=== PATIENT | male | born 1995 | race Caucasian/White ===

== ENCOUNTER 2024-05-09 18:20 | Observation (INO) ==
--- OUTSIDE RECORDS SUMMARY | 2024-05-09 18:31 | External Medical Summary | Summary of Care ---
Author Name Unknown Organization [facility] Address [address] [place] [address] Phone [phone] Care Team Providers Care Entertainment Reporter Name Role Phone Ramo Penaloza MD Primary Care Provider Reason for Visit * Reason Onset Date Comments No Show 12/12/2023 [facility] No Show Auto mation Encounter Details Date Type Department Care Team (Late st Contact Info) Description 12/12/2023 Telephone Family Practice [facility] [address] [place] [id number] Jocelyn Walker CRNP [address] [place] [address] No Show ([facility] No Show Automation) Allergies Active Allergy Reactions Criticality Noted Date Comments Aripiprazole Edema face/lips/tongue,Other (Please comment) High 01/07/2008 Per mom, pt had shaking, very lethargic, Risperidone Abdominal pain High 03/23/2013 Slurred speech, blurred vision, documented as of this encounter (statuses as of 12/12/2023) Medications Medication Sig Dispensed Refills Start Date End Date Status levETIRAcetam 1000 MG Oral Tablet Take 1 Tablet by mouth in the morning and 1 Tablet before bedtime. 180 Tablet 3 08/08/2023 Active Fluticasone Propionate 50 MCG/ACT Nasal Suspension (Flonase) Administer 2 Sprays into nostril daily as needed for Allergies or Congestion. 16 g 5 08/08/2023 Active Proventil HFA 108 (90 Base) MCG/ACT Inhalation Aerosol Solution Inhale 2 Puffs by mouth every 4 hours as needed for Wheezing. 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 documented as of this encounter (statuses as of 12/12/2023) Immunizations Name Administration Dates Next Due Seasonal Influenza Virus Vac cine, Unspecified Formulation 12/05/2021 TDAP (age 10 and older)(Boostrix) 12/05/2021 documented as of this encounter Social History Tobacco Use Types Packs/Day Years Used Date Smoking Tobacco: Every Day Cigarettes Passive Smoke Exposure: Current Smokeless Tobacco: Former Alcohol Use Standard Drinks/Week Comments Not Currently 0 (1 standard drink = 0.6 oz pur e alcohol) occ PHQ-2 Answer Date Recorded PHQ Adult Total Score 0 08/08/2023 Hunger Vital Sign Answer Date Recorded Within the past 12 months, y ou worried that your food would run out before you got the money to buy more. Never true 08/08/19 24 Within the past 12 months, t he food you bought just didn't last and you didn't have money to get more. Never true 08/08/2023 Childcare Answer Date Recorded Do you feel overwhelmed with taking care of a child, family member or friend? No 08/08/2023 Does your family need help f inding childcare? (Household - for ages 0-17 years) Not on file 08/08/2023 Clothing Answer Date Recorded Have you been unable to get clothing when it was really needed? No 08/08/2023 Is your family able to get c lothes or diapers when needed? (Household - for ages 0-17 years) Not on file 08/08/2023 Personal Safety Answer Date Recorded Do you feel unsafe or have concerns for your saf ety? No 08/08/2023 Do you have concerns for you r family's safety? (Household - for ages 0-17 years) Not on file 08/08/2023 Utilities Answer Date Recorded Do you have trouble paying y our heating, water, or electric bill? No 08/08/2023 Is your family able to pay t he heat, water, or electric bill? (Household - for ages 0-17 years) Not on file 08/08/2023 Does your family have access to good internet? (Household - for ages 0-17 years) Not on file 08/08/2023 Employment Status Answer Date Recorded Are you unemployed or without regular income? No 08/08/2023 Does the household have a re gular source of income? (Household - for ages 0-17 years) Not on file 08/08/2023 Social Connections Answer Date Recorded How often do you feel lonely or isolated from th ose around you? Never 08/08/2023 Financial Resource Strain Answer Date R ecorded Do you have any trouble payi ng for your medications, or do you think you might in the future? No 08/08/2023 Does your family have troubl e paying for medicine? (Household - for ages 0-17 years) Not on file 08/08/2023 Transportation Needs Answer Date Record ed READ ONLY Do you have troubl e getting a ride to medical visits or work? Never True 08/08/2023 Does your family have a hard time getting a ride to doctors visits? (Household - for ages 0-17 years) Not on file 08/08/2023 Has lack of transportation k ept you from medical appointments, meetings, work, or from getting things needed for daily living? Check all that apply. (Adult - for ages 18 years and over) Not on file 08/08/2023 Do you (or your family) have trouble finding or paying for a ride (transportation)? (Household - for ages 0-17 years) Not on file 08/08/2023 Housing Stability Answer Date Recorded Do you currently live in a s helter or have no steady place to sleep at night? No 08/08/2023 READ ONLY Do you think you a re at risk of becoming homeless? No 08/08/2023 Does your family worry about paying for your home or becoming homeless? (Household - for ages 0-17 years) Not on file 0 08/08/2023 Are you homeless or worried that you might be in the future? (Adult - for ages 18 years and over) Not on file Are you (or your family) mike eless or worried that you might be in the future? (Household - for ages 0-17 years) Not on file Food Insecurity Answer Date Recorded Do you need food for this week? No 08/08/2023 Are you able to get enough f ood for your family? (Household - for ages 0-17 years) Not on file 08/08/2023 Does your family need food t his week? (Household - for ages 0-17 years) Not on file 08/08/2023 Do you always have enough fo od for your family? (Household - for ages 0-17 years) Not on file 08/08/2023 Sex and Gender Information Value Date Recorded Sex Assigned at Male 08/08/2023 8:19 AM EDT Gender Identity Male 08/08/2023 8:19 AM EDT Sexual Orientation Straight 08/08/2023 8: 19 AM EDT Job Start Date Occupation Industry Not on file Not on file Not on file documented as of this encounter Miscellaneous Notes * Telephone Encounter - [facility], No Show - 12/12/2023 8:24 AM EDT Dear Cole Scruggs, Looks like you missed an appointment with JOCELYN WALKER on 12/03/2023 at 02:20 PM. If you haven't already rescheduled, you have a couple of options: Reschedule in [email or web address] Call us at [phone] Can't make a future appointment? Cancel and let someone else have your spot! It's easy to do via [facility] or by calling us. Thanks for [facility] with your care. We hope to see you back in our office soon. Sincerely, JOCELYN WALKER documented in this encounter Plan of Treatment Upcoming Encounters Date Type Department Care Team (Late st Contact Info) Description 08/10/2024 8:20 AM EDT Office Visit Family [facility] [address] [address] Ramo Penaloza MD [address] [id number] Health Maintenance Due Date Last Done Comments Pneumococcal Vaccine: Pediat rics (0 to 5 Years) and At-Risk Patients (6 to 64 Years) (1 of 2 - PCV) 2003 HPV (Gardasil) Vaccine (1 - Male 3-dose series) 01/13/2012 Influenza Vaccine (FLU shot) (#1) 2023 022 Depression Screening 08/07/2024 08/08/2023 DTap/Tdap Vaccines (2 - Td o r Tdap) 12/06/2031 12/05/2021 COVID-19 Vaccine Discontinued HIV Screening Discontinued Hepatitis B Vaccine Discontinued Hepatitis C Screening Discontinued MENINGOCOCCAL (MENACTRA/MENVEO) Aged Out No longer eligible based on patient's age to complete this topic documented as of this encounter Medical Devices Not on filedocumented as of this encounter Care Teams Entertainment Reporter Relationship Specialty Start Date End Date Ramo Penaloza MD [address] [id number] PCP - General Family Medicine 08/08/23 documented as of this encounter
--- OUTSIDE RECORDS SUMMARY | 2024-05-09 18:31 | External Medical Summary | Summary of Care ---
Author Name Unknown Organization [facility] Address [address] [place] [address] Phone [phone] Care Team Providers Care Scrap Kettle Tender Name Role Phone Ramo Penaloza MD Primary Care Provider Reason for Visit * Reason Onset Date Comments Appointment 12/03/2023 Appointment Encounter Details Date Type Department Care Team (Late st Contact Info) Description 12/03/2023 Telephone Family Practice [facility] [address] [facility] [address] Ramo Penaloza MD [address] [place] [address] Appointment (Appointment ) Allergies Active Allergy Reactions Criticality Noted Date Comments Aripiprazole Edema face/lips/tongue,Other (Please comment) High 01/07/2008 Per mom, pt had shaking, very lethargic, Risperidone Abdominal pain High 03/23/2013 Slurred speech, blurred vision, documented as of this encounter (statuses as of 12/03/2023) Medications Medication Sig Dispensed Refills Start Date [...] as of this encounter (statuses as of 12/03/2023) Active Problems Problem Noted Date Diagnosed Date Convulsions 08/08/2023 Exotropia 06/17/2013 Disorder of eye movements 11/08/2009 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 (Household - for ages [...] encounter Miscellaneous Notes * Telephone Encounter - Stefanie Rico LPN - 12/03/2023 2:42 PM EDT Pt called and told given his symptoms he should be seen and suggested [facility] or can rescheduleapt. Said he will call to reschedule his apt as he was going to be late today for apt. * Telephone Encounter - Winnie Cardenas OSA - 12/03/2023 2:26 PM EDT Patient called in at 2:23pm to notify office he was running approx 10min late for his 2:20pm appointment. I advised patient of the 15min late policy and that if he is 15min or more late he would be rescheduled. He states he lives atleast 15 min away. I stated oh ok so you haven't left home yet and he stated no he still needs to get dressed. I explained he would need to reschedule or he could go to a convenient or urgent care for evaluation. He said to reschedule then before I could he asked to speak with a doctor. I explained they are seeing patients but I could take a message. He then asked if a nurse could call him. I asked if it isregarding his symptoms or appointment and he stated appointment. He is asking for a nurse to call him back at [phone] documented in this encounter Plan of Treatment Upcoming Encounters Date Type Department Care Team (Late st Contact Info) Description 08/10/2024 8:20 AM EDT Office Visit Family [facility] [address] [address] Ramo Penaloza MD [address] [address] Health Maintenance Due Date Last Done Comments [...] filedocumented as of this encounter Care Teams Scrap Kettle Tender Relationship Specialty Start Date End Date Ramo Penaloza MD [address] [id number] PCP - General Family Medicine 08/08/23 documented as of this encounter
[2024-05-09 19:05] LABS: Basophils # (auto) 0.05 K/uL (0.00-0.20); Basophils % (auto) 0.5 %; Eosinophils # (auto) 0.04 K/uL (0.00-0.50); Eosinophils % (auto) 0.4 %; Hemoglobin 15.4 g/dl (14.0-18.0); Immature Granulocytes # (auto) 0.03 K/uL (0.01-0.20); Immature Granulocytes % (auto) 0.3 %; Lymphocytes # (auto) 0.81 K/uL (1.20-3.40); Lymphocytes % (auto) 7.9 %; Mean Corpuscular Hemoglobin 27.9 pg (25.0-34.0); Mean Corpuscular Hgb Conc 32.8 g/dL (32.0-36.0); Mean Corpuscular Volume 85.1 fL (80.0-100.0); Mean Platelet Volume 9.1 fL (9.4-12.4); Monocytes # (auto) 0.63 K/uL (0.11-0.59); Monocytes % (auto) 6.2 %; Neutrophils # (auto) 8.67 K/uL (1.40-6.50); Neutrophils % (auto) 84.7 %; Platelet Count 219 K/uL (130-400); RDW Coefficient of Variation 13.2 % (11.5-14.5); RDW Standard Deviation 41.4 fL (36.4-46.3); Red Blood Count 5.52 M/uL (4.70-6.10); White Blood Count 10.23 K/ul (4.8-10.8)
[2024-05-09] MEDS: ACETAMINOPHEN 1,000 MG/100 ML VIAL IV STA (19:07)
[2024-05-09 19:21] LABS: Alanine Aminotransferase 18 U/L (7-52); Albumin Globulin Ratio 1.3 (0.9-2); Albumin Level 4.5 gm/dl (3.4-5.0); Alkaline Phosphatase 68 U/L (34-104); Anion Gap 5 (3-11); Aspartate Aminotransferase 15 U/L (13-39); BUN Creatinine Ratio 8.9 (10-20); Bilirubin,Total 0.5 mg/dl (0.2-1.0); Blood Urea Nitrogen 9 mg/dl (6-23); Calcium 9.4 mg/dl (8.6-10.3); Carbon Dioxide 29 mmol/L (21-32); Chloride 103 mmol/L (98-107); Creatinine Clr Calc Pharmacy 180.9 ml/min; Globulin 3.5 gm/dl (2.5-4.0); Glucose 155 mg/dl (70-99(Fasting)); Potassium 4.1 mmol/L (3.5-5.1); Sodium 137 mmol/L (136-145)
[2024-05-09 19:27] LABS: Troponin I High Sensitivity < 2.3 pg/ml (0-20)
--- NOTE | 2024-05-09 19:30 | Emergency Department Note ---
Impression & Plan Influenza A, Tachycardia ED Provider Note NAME: BARB DOMÍNGUEZ AGE: 29 SEX: M : 1995 ARRIVES VIA: Walk-In INFORMANT: Patient, ED PROVIDER(S): Jermain Mobley MD CHIEF COMPLAINT: Shortness of breath HPI: This is a 29-year-old male present for shortness of breath. Patient states that yesterday he began having shortness of breath, body aches and pain with cough. He notes there is no pain with breathing at this time but does note his abdomen and chest hurt when he is coughing or sneezing. He notes no fevers. He notes nausea/vomiting with coughing too hard. Otherwise no abdominal pain, diarrhea. Does have body aches. ROS: See above HPI for pertinent positives & negatives. A total of 10 systems reviewed and were otherwise negative. PAST MEDICAL HISTORY: See Below PAST SURGICAL HISTORY: See Below FAMILY HISTORY: See Below SOCIAL HISTORY: See Below HOME MEDICATIONS: See Below ALLERGIES: See Below VITALS: See Below PHYSICAL EXAMINATION: General: resting comfortably in no acute distress Head: Normocephalic and atraumatic Eyes: Normal inspection, extraocular muscles intact Ear, nose, throat: Normal external exam Neck: Normal range of motion Respiratory: lungs clear to auscultation bilaterally Cardiovascular: Regular rate/rhythm, no murmur GI: soft, nontender, no guarding or rebound Extremities: nontender, moves all extremities Neuro: The patient awake and alert, appropriately conversive, no focal deficits, symmetric faces Skin: Warm, dry, and intact MEDICAL DECISION MAKING: This is a 29-year-old male present for shortness of breath. Consider pneumonia, PE, dissection, sepsis, URI. -ECG independently interpreted by me with sinus tachycardia rate of 124, normal IL, normal QRS, normal QTc, no ST segment elevations consistent with STEMI criteria -Chest Xray independently interpreted by me showing no pneumothorax, focal opacity, or pleural effusions. -Patient is positive for influenza A. -Patient given Tylenol and fluids and still is tachycardic. -Despite low risk, will do CT of the chest to rule out PE -No obvious large PEs is noted on my independent interpretation of the CAT scan. -He remains tachycardic and ambulating to the bathroom back increased heart rate from 140s/160s. His ox no drops around 91% as well. -Due to this, will admit for persistent tachycardia, influenza A, weakness borderline hypoxia Differential diagnosis: Pneumonia, PE, dissection, sepsis, URI Diagnostics interpreted by me: ECG: See above Cardiac Monitoring: An order was placed for continuous cardiac monitoring. The monitor shows a rate of 123 with sinus rhythm. Past Med/Surg History Problem List (Updated 05/10/24 @ 01:36 by Jermain Mobley MD) Tachycardia (Acute) Influenza A (Acute) COVID-19 (Acute) Bronchitis (Acute) Left knee pain (Acute) Left knee pain (Acute) Strep pharyngitis (Acute) Strep pharyngitis (Acute) Tonsillitis (Acute) Social History Smoking Status: Current every day smoker Tobacco Type: E-cigarettes / Vaping Preferred Language: Turkish Feels Safe at Home: Yes Allergies Allergies Allergy/AdvReac Type Severity Reaction Status Date / Time aripiprazole Allergy Mild shaking Unverified 05/09/24 19:52 and lethargic risperidone AdvReac Severe drooling, Verified 05/09/24 19:52 lethargic Home Meds Home Medications Medication Instructions Recorded Confirmed albuterol sulfate 90 mcg/actuation 2 puff inhalation Q4 PRN Wheezing 05/09/24 05/09/24 aerosol inhaler fluticasone propionate 50 2 spray intranasal DAILY PRN 05/09/24 05/09/24 mcg/actuation nasal allergies or congestion spray,suspension levetiracetam 1,000 mg tablet 1,000 mg PO AMHS 05/09/24 05/09/24 Results & Data (ED) Vital Signs Vital Signs - 24 hr 05/09/24 18:21 05/09/24 18:27 05/09/24 18:43 Temperature 36.9 C Temperature Source Temporal Artery Scan Pulse Rate 125 H 123 H Pulse Rate [Apical] Pulse Rhythm Pulse Rhythm [Apical] Pulse Strength [Apical] Respiratory Rate 12 Respiratory Effort / Characteristics Non-Labored Spontaneous Respiratory Depth Normal Respiratory Pattern Regular Blood Pressure 146/81 H Blood Pressure [Right Arm] Blood Pressure Mean 102 Blood Pressure Mean [Right Arm] Blood Pressure Position [Right Arm] Pulse Oximetry 93 92 Oxygen Delivery Method Room Air Room Air Oxygen Flow Rate Sepsis Recent Fever Within 48 Hours No Sepsis New/Unexplained Change in Mental Status No Sepsis Action Taken by Nursing No Action Required 05/09/24 18:49 05/09/24 20:21 05/09/24 22:37 Temperature Temperature Source Pulse Rate 127 H 132 H Pulse Rate [Apical] 138 H Pulse Rhythm Regular Pulse Rhythm [Apical] Regular Pulse Strength [Apical] Normal Respiratory Rate 20 20 Respiratory Effort / Characteristics Non-Labored Spontaneous Respiratory Depth Normal Respiratory Pattern Regular Blood Pressure Blood Pressure [Right Arm] 128/82 Blood Pressure Mean Blood Pressure Mean [Right Arm] 97 Blood Pressure Position [Right Arm] Lying Pulse Oximetry 92 92 Oxygen Delivery Method Room Air Room Air Oxygen Flow Rate Sepsis Recent Fever Within 48 Hours Sepsis New/Unexplained Change in Mental Status Sepsis Action Taken by Nursing 05/09/24 23:00 05/10/24 01:00 Temperature 39.2 C H Temperature Source Oral Pulse Rate Pulse Rate [Apical] 127 H 123 H Pulse Rhythm Pulse Rhythm [Apical] Pulse Strength [Apical] Respiratory Rate 30 H 24 Respiratory Effort / Characteristics Non-Labored Spontaneous Non-Labored Spontaneous Respiratory Depth Normal Normal Respiratory Pattern Regular Regular Blood Pressure Blood Pressure [Right Arm] 138/95 107/74 Blood Pressure Mean Blood Pressure Mean [Right Arm] 109 85 Blood Pressure Position [Right Arm] Lying Lying Pulse Oximetry 95 95 Oxygen Delivery Method Nasal Cannula Room Air Oxygen Flow Rate 2 Sepsis Recent Fever Within 48 Hours Sepsis New/Unexplained Change in Mental Status Sepsis Action Taken by Nursing Laboratory Data 05/09/24 18:45 05/09/24 18:45 Lab Results 05/09/24 Range/Units 18:45 WBC 10.23 (4.8-10.8) K/ul RBC 5.52 (4.70-6.10) M/uL Hgb 15.4 (14.0-18.0) g/dl Hct 47.0 (42.0-52.0) % MCV 85.1 (80.0-100.0) fL MCH 27.9 (25.0-34.0) pg MCHC 32.8 (32.0-36.0) g/dL RDW Std Deviation 41.4 (36.4-46.3) fL RDW Coeff of Babita 13.2 (11.5-14.5) % Plt Count 219 (130-400) K/uL MPV 9.1 L (9.4-12.4) fL Immature Gran % (Auto) 0.3 % Neut % (Auto) 84.7 % Lymph % (Auto) 7.9 % Taliaferro % (Auto) 6.2 % Eos % (Auto) 0.4 % Baso % (Auto) 0.5 % Neut # (Auto) 8.67 H (1.40-6.50) K/uL Lymph # (Auto) 0.81 L (1.20-3.40) K/uL Taliaferro # (Auto) 0.63 H (0.11-0.59) K/uL Eos # (Auto) 0.04 (0.00-0.50) K/uL Baso # (Auto) 0.05 (0.00-0.20) K/uL Immature Gran # (Auto) 0.03 (0.01-0.20) K/uL Sodium 137 (136-145) mmol/L Potassium 4.1 (3.5-5.1) mmol/L Chloride 103 (98-107) mmol/L Carbon Dioxide 29 (21-32) mmol/L Anion Gap 5 (3-11) BUN 9 (6-23) mg/dl Creatinine 1.01 (0.6-1.4) mg/dl Est Cr Clr Drug Dosing 180.9 ml/min eGFR 104.54 BUN/Creatinine Ratio 8.9 L (10-20) Glucose 155 H (70-99(Fasting)) mg/dl Calcium 9.4 (8.6-10.3) mg/dl Total Bilirubin 0.5 (0.2-1.0) mg/dl AST 15 (13-39) U/L ALT 18 (7-52) U/L Alkaline Phosphatase 68 (34-104) U/L Troponin I High Sens < 2.3 (0-20) pg/ml Total Protein 8.0 (6.0-8.3) gm/dl Albumin 4.5 (3.4-5.0) gm/dl Globulin 3.5 (2.5-4.0) gm/dl Albumin/Globulin Ratio 1.3 (0.9-2) Adenovirus (PCR) Not Detected (NotDetected) B. pertussis DNA (PCR) Not Detected (NotDetected) B.parapertussis DNA PCR Not Detected (NotDetected) C. pneumoniae DNA (PCR) Not Detected (NotDetected) Coronavirus OC43 (PCR) Not Detected (NotDetected) Coronavirus HKU1 (PCR) Not Detected (NotDetected) Coronavirus 229E (PCR) Not Detected (NotDetected) SARS-CoV-2 (PCR) Not Detected (NotDetected) Coronavirus NL63 (PCR) Not Detected (NotDetected) Human Metapneumovir PCR Not Detected (NotDetected) Influenza A (H3) PCR DETECTED A (NotDetected) Influenza Type B (PCR) Not Detected (NotDetected) M. pneumoniae (PCR) Not Detected (NotDetected) Parainfluenza 1 (PCR) Not Detected (NotDetected) Parainfluenza 2 (PCR) Not Detected (NotDetected) Parainfluenza 3 (PCR) Not Detected (NotDetected) Parainfluenza 4 (PCR) Not Detected (NotDetected) RSV (PCR) Not Detected (NotDetected) Entero/Rhino (PCR) Not Detected (NotDetected) Administered Medications Discontinued Medications Acetaminophen (Ofirmev) 1,000 mg in 100 mls @ 400 mls/hr IV NOW STA Stop: 05/09/24 19:13 Last Infusion: 05/09/24 19:22 Dose: Infused Documented By: Admin: 05/09/24 19:07 Dose: 400 mls/hr Documented By: SAY Sodium Chloride (Nss) 1,000 mls @ 999 mls/hr IV .Q1H1M ONE Stop: 05/09/24 20:19 Last Infusion: 05/10/24 00:27 Dose: Infused Documented By: Admin: 05/09/24 20:49 Dose: 999 mls/hr Documented By: BA Ioversol (Optiray 320 125ml) 119 ml IV ONCE ONE Stop: 05/09/24 20:19 Last Admin: 05/09/24 20:18 Dose: 119 ml Documented By: MAMADOU Ketorolac Tromethamine (Ketorolac Tromethamine 15 Mg/Ml Vial) 15 mg IV NOW ONE Stop: 05/09/24 23:57 Last Admin: 05/10/24 00:26 Dose: 15 mg Documented By: BA Imaging Data Radiologist's Impression: Chest X-Ray 05/09/24 18:41 EXAM: XR chest 1V portable CLINICAL HISTORY: Dyspnea TECHNIQUE: An X-ray image of the chest is obtained in AP projection. COMPARISON: Prior chest X-ray dated 10/31/2021 FINDINGS: Pulmonary Parenchyma: Bilateral increased bronchovascular markings and peribronchial reticulations again noticed, may denote bronchitis/airway disease, correlate clinically. No evidence of consolidation, collapse, or focal opacities. No pulmonary nodules are identified. No evidence of pleural effusion or pleural thickening. Heart and Mediastinum: Heart size and shape are normal. No mediastinal widening or masses. No hilar or mediastinal lymphadenopathy. Bony Thorax: Bony thorax appears intact without fractures or deformities. Soft Tissues: Soft tissues overlying the chest wall are unremarkable. Cardiac monitoring electrodes. IMPRESSION: Bilateral increased bronchovascular markings and peribronchial reticulations again noticed, may denote bronchitis/airway disease, correlate clinically. Findings are interval worsening. Electronically signed by Charanjit Mendoza 05-09-2024 8:50 PM Chest CTA 05/09/24 19:54 Exam(s): CTA CHEST EXAM: CT Angiography Chest With Intravenous Contrast CLINICAL HISTORY: Reason for exam: PE/PNA. TECHNIQUE: Axial computed tomographic angiography images of the chest with intravenous contrast. CTDI is 28 mGy and DLP is 1049 mGy-cm. Automated exposure control was utilized for the study. A dose lowering technique was utilized adhering to the principles of ALARA. MIP reconstructed images were created and reviewed. COMPARISON: No relevant prior studies available. FINDINGS: Pulmonary arteries: Limited by suboptimal opacification of the pulmonary arteries as well as respiratory motion. As visualized, no filling defects are seen in the pulmonary arteries. Aorta: No acute findings. No thoracic aortic aneurysm. Lungs: Unremarkable. No mass. No consolidation. Pleural space: Unremarkable. No significant effusion. No pneumothorax. Heart: Unremarkable. No cardiomegaly. No significant pericardial effusion. No evidence of RV dysfunction. Bones/joints: No acute fracture. No dislocation. Soft tissues: Unremarkable. Lymph nodes: Unremarkable. No enlarged lymph nodes. IMPRESSION: Limited exam. No pulmonary emboli identified. No evidence of acute cardiopulmonary process. Electronically signed by: Forrest Gates MD 05/09/24 23:32 PM Discharge Plan Visit Data Chief Complaint: Shortness of Breath/Dyspnea ED Provider: Jermain Mobley Discharge Problem: Influenza A, Tachycardia Forms Stand Alone Forms: [facility] Prescriptions Prescriptions: No Action albuterol sulfate 90 mcg/actuation HFA aerosol inhaler 2 puff INHALATION Q4 PRN (Reason: Wheezing) levetiracetam 1,000 mg tablet 1,000 mg PO AMHS fluticasone propionate 50 mcg/actuation spray,suspension 2 spray INTRANASAL DAILY PRN (Reason: allergies or congestion) Referrals Referrals: PCP,NO [Physician] -
[2024-05-09 19:49] LABS: Adenovirus PCR Not Detected (NotDetected); Bordetella parapertussis PCR Not Detected (NotDetected); Bordetella pertussis PCR Not Detected (NotDetected); Chlamydia pneumoniae PCR Not Detected (NotDetected); Coronavirus 229E PCR Not Detected (NotDetected); Coronavirus CoV-2 (COVID19)PCR Not Detected (NotDetected); Coronavirus HKU1 PCR Not Detected (NotDetected); Coronavirus NL63 PCR Not Detected (NotDetected); Coronavirus OC43PCR Not Detected (NotDetected); Human Metapneumovirus PCR Not Detected (NotDetected); Influenza A (H3) PCR DETECTED (NotDetected); Influenza B PCR Not Detected (NotDetected); Mycoplasma pneumoniae PCR Not Detected (NotDetected); Parainfluenza Virus 1 PCR Not Detected (NotDetected); Parainfluenza Virus 2 PCR Not Detected (NotDetected); Parainfluenza Virus 3 PCR Not Detected (NotDetected); Parainfluenza Virus 4 PCR Not Detected (NotDetected); Respiratory Syncytial VirusPCR Not Detected (NotDetected); Rhinovirus/Enterovirus PCR Not Detected (NotDetected)
[2024-05-09] MEDS: OPTIRAY 320 125ml IV ONE (20:18)
[2024-05-09] MEDS: SODIUM CHLORIDE 0.9% 1,000 ML IV ONE (20:49)
--- NOTE | 2024-05-09 20:50 | XRay Report ---
EXAM: XR chest 1V portable CLINICAL HISTORY: Dyspnea TECHNIQUE: An X-ray image of the chest is obtained in AP projection. COMPARISON: Prior chest X-ray dated 10/31/2021 FINDINGS: Pulmonary Parenchyma: Bilateral increased bronchovascular markings and peribronchial reticulations again noticed, may denote bronchitis/airway disease, correlate clinically. No evidence of consolidation, collapse, or focal opacities. No pulmonary nodules are identified. No evidence of pleural effusion or pleural thickening. Heart and Mediastinum: Heart size and shape are normal. No mediastinal widening or masses. No hilar or mediastinal lymphadenopathy. Bony Thorax: Bony thorax appears intact without fractures or deformities. Soft Tissues: Soft tissues overlying the chest wall are unremarkable. Cardiac monitoring electrodes. IMPRESSION: Bilateral increased bronchovascular markings and peribronchial reticulations again noticed, may denote bronchitis/airway disease, correlate clinically. Findings are interval worsening. Electronically signed by Charanjit Mendoza 05-09-2024 8:50 PM
--- NOTE | 2024-05-09 23:34 | CT Scan Report ---
Exam(s): CTA CHEST EXAM: CT Angiography Chest With Intravenous Contrast CLINICAL HISTORY: Reason for exam: PE/PNA. TECHNIQUE: Axial computed tomographic angiography images of the chest with intravenous contrast. CTDI is 28 mGy and DLP is 1049 mGy-cm. Automated exposure control was utilized for the study. A dose lowering technique was utilized adhering to the principles of ALARA. MIP reconstructed images were created and reviewed. COMPARISON: No relevant prior studies available. FINDINGS: Pulmonary arteries: Limited by suboptimal opacification of the pulmonary arteries as well as respiratory motion. As visualized, no filling defects are seen in the pulmonary arteries. Aorta: No acute findings. No thoracic aortic aneurysm. Lungs: Unremarkable. No mass. No consolidation. Pleural space: Unremarkable. No significant effusion. No pneumothorax. Heart: Unremarkable. No cardiomegaly. No significant pericardial effusion. No evidence of RV dysfunction. Bones/joints: No acute fracture. No dislocation. Soft tissues: Unremarkable. Lymph nodes: Unremarkable. No enlarged lymph nodes. IMPRESSION: Limited exam. No pulmonary emboli identified. No evidence of acute cardiopulmonary process. Electronically signed by: Forrest Gates MD 05/09/24 23:32 PM
[2024-05-10] MEDS: KETOROLAC TROMETHAMINE 15 MG/ML VIAL IV ONE (00:26)
[2024-05-10] MEDS: levETIRAcetam 500 MG TAB PO STA (02:37)
[2024-05-10] MEDS: OSELTAMIVIR PHOSPHATE 75 MG CAP PO STA (02:37)
[2024-05-10] MEDS: SODIUM CHLORIDE 0.9% 1,000 ML IV SCH (02:41)
--- NOTE | 2024-05-10 03:18 | History & Physical Report ---
Date of Service May 10, 2024 Assessment & Plan (1) Influenza A: Plan: 29-year-old male with past med history significant for intestinal disaccharide deficiency, disorder of pancreatic internal secretion, generalized convulsive epilepsy without intractable epilepsy, disorder of eye movements, exotropia presents with shortness of breath, body ache and cough since yesterday. Patient states having sore throat and when he is coughing his whole chest and back hurts. Having temp spikes in ER. Feeling short of breath. Denies runny nose. Has headache. Vision is okay. Denies nausea. Has some mild abdominal discomfort. Normal bowel and bladder movements. Blood pressure is okay. Saturating okay on room air. Somewhat restless. Influenza A Presents with shortness of breath, fevers, tachycardia CTA chest no acute findings Tamiflu IV fluids Nebs as needed Supportive care Droplet precautions Close monitoring telemetry Tobacco abuse Counseling No obvious wheezing History of epilepsy On Keppra DVT prophylaxis Lovenox Disposition Telemetry Full code. History of Present Illness Chief Complaint: Fever, shortness of breath and tachycardia Primary Care Provider: Ramo Penaloza 29-year-old male with past med history significant for intestinal disaccharide deficiency, disorder of pancreatic internal secretion, generalized convulsive epilepsy without intractable epilepsy, disorder of eye movements, exotropia presents with shortness of breath, body ache and cough since yesterday. Patient states having sore throat and when he is coughing his whole chest and back hurts. Having temp spikes in ER. Feeling short of breath. Denies runny nose. Has headache. Vision is okay. Denies nausea. Has some mild abdominal discomfort. Normal bowel and bladder movements. Blood pressure is okay. Saturating okay on room air. Somewhat restless. Past medical history. As mentioned above Past surgical history. Colonoscopy. EGD with biopsy. Strabismus surgery. Social history. Smokes 4 packs a day. Alcohol occasional. No drug use. Family history. Mother of COVID-related complications. Brother had DVT. Pneumonia. Allergies Allergy/AdvReac Type Severity Reaction Status Date / Time aripiprazole Allergy Mild shaking Unverified 05/09/24 19:52 and lethargic risperidone AdvReac Severe drooling, Verified 05/09/24 19:52 lethargic Home Medications Medication Instructions Recorded Confirmed Type albuterol sulfate 90 mcg/actuation 2 puff inhalation Q4 PRN Wheezing 05/09/24 05/09/24 History aerosol inhaler fluticasone propionate 50 2 spray intranasal DAILY PRN 05/09/24 05/09/24 History mcg/actuation nasal allergies or congestion spray,suspension levetiracetam 1,000 mg tablet 1,000 mg PO AMHS 05/09/24 05/09/24 History Past Med/Surg History Problem List (Updated 05/10/24 @ 01:36 by Jermain Mobley MD) Tachycardia (Acute) Influenza A (Acute) COVID-19 (Acute) Bronchitis (Acute) Left knee pain (Acute) Left knee pain (Acute) Strep pharyngitis (Acute) Strep pharyngitis (Acute) Tonsillitis (Acute) Social History Smoking Status: Current every day smoker Tobacco Type: Cigarettes Cigarettes Per Day: 20; Hx Alcohol Use: No Hx Substance Use: No Preferred Language: Mauritian Communication Ability: Effective Beliefs That Will Affect Care: None Current Living Situation: Other Current Living Situation Comment: roommate Feels Safe at Home: Yes Review of Systems Review of Systems: All systems reviewed & are unremarkable except as noted in HPI & below Physical Exam Physical Exam: General- Not in acute distress. Somewhat restless. Head- atraumatic Eyes- PERRL ENT- oropharynx clear Poor dentition Neck- supple, no JVD. Lungs- clear to auscultation, no wheezing or crackles Heart- regular rhythm; tachycardia, no murmur, no gallop. Abdomen- normal bowel sounds, soft, nontender, no distension Extremities- no pretibial edema, no erythema seen Neuro- alert, oriented PERRL, no facial palsy; no dysarthria; moves extremities Results & Data Results & Data Vital Signs (Past 12 Hours) Vital Signs Temp Pulse Pulse Resp BP BP Pulse Ox 05/10/24 03:00 112 H 20 135/73 95 05/10/24 02:18 114 H 05/10/24 01:00 123 H 24 107/74 95 05/09/24 23:00 39.2 C H 127 H 30 H 138/95 95 05/09/24 22:37 132 H 05/09/24 20:21 138 H 20 128/82 92 05/09/24 18:49 127 H 20 92 05/09/24 18:43 123 H 05/09/24 18:27 36.9 C 125 H 12 146/81 H 92 05/09/24 18:21 93 O2 Del Method O2 Flow Rate 05/10/24 03:00 Room Air 05/10/24 02:18 05/10/24 01:00 Room Air 05/09/24 23:00 Nasal Cannula 2 05/09/24 22:37 05/09/24 20:21 Room Air 05/09/24 18:49 Room Air 05/09/24 18:43 05/09/24 18:27 Room Air 05/09/24 18:21 Room Air Diagnostic Findings Laboratory Results WBC 10.23 K/ul (4.8-10.8) 05/09/24 18:45 RBC 5.52 M/uL (4.70-6.10) 05/09/24 18:45 Hgb 15.4 g/dl (14.0-18.0) 05/09/24 18:45 Hct 47.0 % (42.0-52.0) 05/09/24 18:45 MCV 85.1 fL (80.0-100.0) 05/09/24 18:45 MCH 27.9 pg (25.0-34.0) 05/09/24 18:45 MCHC 32.8 g/dL (32.0-36.0) 05/09/24 18:45 RDW Std Deviation 41.4 fL (36.4-46.3) 05/09/24 18:45 RDW Coeff of Babita 13.2 % (11.5-14.5) 05/09/24 18:45 Plt Count 219 K/uL (130-400) 05/09/24 18:45 MPV 9.1 fL (9.4-12.4) L 05/09/24 18:45 Immature Gran % (Auto) 0.3 % 05/09/24 18:45 Neut % (Auto) 84.7 % 05/09/24 18:45 Lymph % (Auto) 7.9 % 05/09/24 18:45 [place] % (Auto) 6.2 % 05/09/24 18:45 Eos % (Auto) 0.4 % 05/09/24 18:45 Baso % (Auto) 0.5 % 05/09/24 18:45 Neut # (Auto) 8.67 K/uL (1.40-6.50) H 05/09/24 18:45 Lymph # (Auto) 0.81 K/uL (1.20-3.40) L 05/09/24 18:45 [place] # (Auto) 0.63 K/uL (0.11-0.59) H 05/09/24 18:45 Eos # (Auto) 0.04 K/uL (0.00-0.50) 05/09/24 18:45 Baso # (Auto) 0.05 K/uL (0.00-0.20) 05/09/24 18:45 Immature Gran # (Auto) 0.03 K/uL (0.01-0.20) 05/09/24 18:45 Sodium 137 mmol/L (136-145) 05/09/24 18:45 Potassium 4.1 mmol/L (3.5-5.1) 05/09/24 18:45 Chloride 103 mmol/L (98-107) 05/09/24 18:45 Carbon Dioxide 29 mmol/L (21-32) 05/09/24 18:45 Anion Gap 5 (3-11) 05/09/24 18:45 BUN 9 mg/dl (6-23) 05/09/24 18:45 Creatinine 1.01 mg/dl (0.6-1.4) 05/09/24 18:45 Est Cr Clr Drug Dosing 180.9 ml/min 05/09/24 18:45 eGFR 104.54 05/09/24 18:45 BUN/Creatinine Ratio 8.9 (10-20) L 05/09/24 18:45 Glucose 155 mg/dl (70-99(Fasting)) H 05/09/24 18:45 Calcium 9.4 mg/dl (8.6-10.3) 05/09/24 18:45 Total Bilirubin 0.5 mg/dl (0.2-1.0) 05/09/24 18:45 AST 15 U/L (13-39) 05/09/24 18:45 ALT 18 U/L (7-52) 05/09/24 18:45 Alkaline Phosphatase 68 U/L (34-104) 05/09/24 18:45 Troponin I High Sens < 2.3 pg/ml (0-20) 05/09/24 18:45 Total Protein 8.0 gm/dl (6.0-8.3) 05/09/24 18:45 Albumin 4.5 gm/dl (3.4-5.0) 05/09/24 18:45 Globulin 3.5 gm/dl (2.5-4.0) 05/09/24 18:45 Albumin/Globulin Ratio 1.3 (0.9-2) 05/09/24 18:45 Adenovirus (PCR) Not Detected (NotDetected) 05/09/24 18:45 B. pertussis DNA (PCR) Not Detected (NotDetected) 05/09/24 18:45 B.parapertussis DNA PCR Not Detected (NotDetected) 05/09/24 18:45 C. pneumoniae DNA (PCR) Not Detected (NotDetected) 05/09/24 18:45 Coronavirus OC43 (PCR) Not Detected (NotDetected) 05/09/24 18:45 Coronavirus HKU1 (PCR) Not Detected (NotDetected) 05/09/24 18:45 Coronavirus 229E (PCR) Not Detected (NotDetected) 05/09/24 18:45 SARS-CoV-2 (PCR) Not Detected (NotDetected) 05/09/24 18:45 Coronavirus NL63 (PCR) Not Detected (NotDetected) 05/09/24 18:45 Human Metapneumovir PCR Not Detected (NotDetected) 05/09/24 18:45 Influenza A (H3) PCR DETECTED (NotDetected) A 05/09/24 18:45 Influenza Type B (PCR) Not Detected (NotDetected) 05/09/24 18:45 M. pneumoniae (PCR) Not Detected (NotDetected) 05/09/24 18:45 Parainfluenza 1 (PCR) Not Detected (NotDetected) 05/09/24 18:45 Parainfluenza 2 (PCR) Not Detected (NotDetected) 05/09/24 18:45 Parainfluenza 3 (PCR) Not Detected (NotDetected) 05/09/24 18:45 Parainfluenza 4 (PCR) Not Detected (NotDetected) 05/09/24 18:45 RSV (PCR) Not Detected (NotDetected) 05/09/24 18:45 Entero/Rhino (PCR) Not Detected (NotDetected) 05/09/24 18:45 Impressions Chest X-Ray 05/09/24 18:41 EXAM: XR chest 1V portable CLINICAL HISTORY: Dyspnea TECHNIQUE: An X-ray image of the chest is obtained in AP projection. COMPARISON: Prior chest X-ray dated 10/31/2021 FINDINGS: Pulmonary Parenchyma: Bilateral increased bronchovascular markings and peribronchial reticulations again noticed, may denote bronchitis/airway disease, correlate clinically. No evidence of consolidation, collapse, or focal opacities. No pulmonary nodules are identified. No evidence of pleural effusion or pleural thickening. Heart and Mediastinum: Heart size and shape are normal. No mediastinal widening or masses. No hilar or mediastinal lymphadenopathy. Bony Thorax: Bony thorax appears intact without fractures or deformities. Soft Tissues: Soft tissues overlying the chest wall are unremarkable. Cardiac monitoring electrodes. IMPRESSION: Bilateral increased bronchovascular markings and peribronchial reticulations again noticed, may denote bronchitis/airway disease, correlate clinically. Findings are interval worsening. Electronically signed by Charanjit Mendoza 05-09-2024 8:50 PM Chest CTA 05/09/24 19:54 Exam(s): CTA CHEST EXAM: CT Angiography Chest With Intravenous Contrast CLINICAL HISTORY: Reason for exam: PE/PNA. TECHNIQUE: Axial computed tomographic angiography images of the chest with intravenous contrast. CTDI is 28 mGy and DLP is 1049 mGy-cm. Automated exposure control was utilized for the study. A dose lowering technique was utilized adhering to the principles of ALARA. MIP reconstructed images were created and reviewed. COMPARISON: No relevant prior studies available. FINDINGS: Pulmonary arteries: Limited by suboptimal opacification of the pulmonary arteries as well as respiratory motion. As visualized, no filling defects are seen in the pulmonary arteries. Aorta: No acute findings. No thoracic aortic aneurysm. Lungs: Unremarkable. No mass. No consolidation. Pleural space: Unremarkable. No significant effusion. No pneumothorax. Heart: Unremarkable. No cardiomegaly. No significant pericardial effusion. No evidence of RV dysfunction. Bones/joints: No acute fracture. No dislocation. Soft tissues: Unremarkable. Lymph nodes: Unremarkable. No enlarged lymph nodes. IMPRESSION: Limited exam. No pulmonary emboli identified. No evidence of acute cardiopulmonary process. Electronically signed by: Forrest Gates MD 05/09/24 23:32 PM ECG Additional Comments: ECG. Sinus tachycardia 124. No acute ST changes seen. Code Status & VTE Plan VTE Prophylaxis Plan VTE Prophylaxis will be ordered: Yes
[2024-05-10] MEDS ORDERED: FLUTICASONE PROPIONATE NA SPR 16 GM BTL PRN (05:10)
[2024-05-10] MEDS ORDERED: KETOROLAC 30 MG/ML VIAL IV PRN (05:10)
[2024-05-10] MEDS: guaiFENesin/DEXTROM SYRUP 100MG/10MG 5ML UDC PO PRN (05:53)
[2024-05-10] MEDS: BENZONATATE 100 MG CAPSULE PO ONE (05:53)
[2024-05-10] MEDS: ACETAMINOPHEN 1,000 MG/100 ML VIAL IV PRN (06:13)
[2024-05-10] MEDS: ALBUT/IPRATROP 3MG/0.5MG NEB 3 ML VIAL NEB SCH (09:22)
[2024-05-10] MEDS: OSELTAMIVIR PHOSPHATE 75 MG CAP PO SCH (11:12)
[2024-05-10] MEDS: ENOXAPARIN INJ 40 MG/0.4 ML SYR SQ SCH (11:12)
[2024-05-10] MEDS: levETIRAcetam 500 MG TAB PO SCH (11:12)
[2024-05-10] MEDS: COUGH DROP (SUGAR FREE) LOZ 24 LOZ/1 BOX BUCCAL PRN (11:13)
[2024-05-10] MEDS: guaiFENesin/DEXTROM SYRUP 200MG/20MG 10ML UDC PO PRN (11:13)
[2024-05-10] MEDS: BENZONATATE 100 MG CAPSULE PO SCH (11:13)
--- NOTE | 2024-05-10 11:14 | Communication Note ---
Date of Service: May 10, 2024 Patient seen and examined at bedside. He reports cough and congestion; reports some shortness of breath on exertion as well. He is afebrile in the a.m. On physical examination; Constitutional: Alert oriented x 3; not in distress. Respiratory: Bilateral occasional wheeze heard Cardiovascular: RRR, no murmur, no edema Vessels: no JVD or carotid bruit Chest: normal inspection of chest Abdomen: normal bowel sounds, soft, nontender, no hepatosplenomegaly Musculoskeletal: no cyanosis or clubbing, extremities motor strength 5/5 Skin: no rashes, warm and dry normal turgor Neurologic: PERRL, EOMI, accommodation nl, no face palsy, no dysarthria CN's II- XI intact bilaterally and moves all extremities Assessment/plan Influenza A; patient presents with fever, chills; positive for influenza A. Currently on Tamiflu; continue for 5 days. Supportive care. DuoNebs twice daily Seizure disorder; continue on Keppra Full progress note to follow tomorrow Please note the above document was generated using voice recognition software. It may contain grammatical, syntax or spelling errors. Any formal questions or concerns about the content, text or information contained within the body of this dictation should be directly addressed to the provider for clarification
[2024-05-10] MEDS: LEVALBUTEROL HCL 0.63 MG/3 ML NEB NEB PRN (16:10)
[2024-05-10 21:40] LABS: Appearance Urine Clear (Clear); Bilirubin Urine Negative (Negative); Blood Urine Negative (Negative); Color Urine Yellow; Glucose Urine UA Negative (Negative); Ketones Urine Negative (Negative); Leukocyte Esterase Urine Negative (Negative); Nitrite Urine Negative (Negative); Protein Urine Negative (Negative); Specific Gravity Urine 1.008 (1.000-1.030); Urobilinogen Urine Negative (Negative)
[2024-05-11] MEDS: IBUPROFEN 200 MG/10 ML UDC PO PRN (02:55)
[2024-05-11 08:10] VITALS: TEMP 97.9
[2024-05-11 09:53] VITALS: BP 137/83
[2024-05-11 10:04] VITALS: PULSE 104; RESP 14; O2SAT 92
--- NOTE | 2024-05-11 13:33 | Discharge Summary ---
Date of Service May 11, 2024 Admission HPI Per Admitting Provider 29-year-old male with past med history significant for intestinal disaccharide deficiency, disorder of pancreatic internal secretion, generalized convulsive epilepsy without intractable epilepsy, disorder of eye movements, exotropia presents with shortness of breath, body ache and cough since yesterday. Patient states having sore throat and when he is coughing his whole chest and back hurts. Having temp spikes in ER. Feeling short of breath. Denies runny nose. Has headache. Vision is okay. Denies nausea. Has some mild abdominal discomfort. Normal bowel and bladder movements. Blood pressure is okay. S aturating okay on room air. Somewhat restless. Past medical history. As mentioned above Past surgical history. Colonoscopy. EGD with biopsy. Strabismus surgery. Social history. Smokes 4 packs a day. Alcohol occasional. No drug use. Family history. Mother of COVID-related complications. Brother had DVT. Pneumonia. Principal Diagnosis Influenza A Discharge Exam General- Not in acute distress. Somewhat restless. Head- atraumatic Eyes- PERRL ENT- oropharynx clear Poor dentition Neck- supple, no JVD. Lungs- clear to auscultation, no wheezing or crackles Heart- regular rhythm; tachycardia, no murmur, no gallop. Abdomen- normal bowel sounds, soft, nontender, no distension Extremities- no pretibial edema, no erythema seen Neuro- alert, oriented PERRL, no facial palsy; no dysarthria; moves extremities Discharge Data Allergies Allergy/AdvReac Type Severity Reaction Status Date / Time aripiprazole Allergy Mild shaking Unverified 05/09/24 19:52 and lethargic risperidone AdvReac Severe drooling, Verified 05/09/24 19:52 lethargic Consultations 05/09/24 22:15 ED Decision to Admit Stat Ordered Studies 05/09/24 19:54 CT for pulmonary embolism PE [CT angio chest PE protocol] Stat Hospital Course (1) Influenza A: 29-year-old male with past med history significant for intestinal disaccharide deficiency, disorder of pancreatic internal secretion, generalized convulsive epilepsy without intractable epilepsy, disorder of eye movements, exotropia presents with shortness of breath, body ache and cough since For 1 day. Patient also was found to be febrile in the ED. Respiratory viral panel positive for influenza A. CTA chest did not show any acute finding. Patient was admitted to telemetry floor; underwent supportive treatment with DuoNebs, and test to shift, Tamiflu. Patient reported significant improvement in the symptoms. Two-step oxygen evaluation was done at the time of the discharge; did not require any supplemental oxygen. Patient was discharged home with instructions to follow-up with PCP. Please note the above document was generated using voice recognition software. It may contain grammatical, syntax or spelling errors. Any formal questions or concerns about the content, text or information contained within the body of this dictation should be directly addressed to the provider for clarification Total Time Total Time Spent Total Time Spent (In Minutes): 45 Total Time Includes: Examination of the Patient, Discharge Planning, Medication Reconciliation, Communication With Other Providers and Other Discharge Plan Discharge Items Patient Disposition: Home - Self-Care Reason For Visit: FLU, TACHYCARDIA, SOB Discharge Diagnosis: Influenza A Activity: Resume your previous activity Non-emergency contact: Primary Care Provider Call non-emergency contact if: you have any medication questions and your symptoms worsen Follow-up/Referrals: Ramo Penaloza M.D. [Primary Care Provider] - (Date & Time 05/15/2024 9:00 AM Provider: Ramo Penaloza MD [facility] ) Diet: Regular Addtl Attending Provider Instructions: You were admitted to the hospital due to influenza A. You are treated with medication, oxygenation during the hospitalization. You are prescribed following medication; Take Tamiflu 75 mg twice daily Take Robitussin as needed 10 mg every 6 hours for the next 5 days An appointment with your primary care doctor will be set up for you for follow- up. Pending Studies at Discharge: No Stand-Alone Forms: My [facility], Smoking Cessation Medications and DC Order Prescriptions: New oseltamivir [Tamiflu] 75 mg Capsule 75 mg PO BID 3 Days Qty: 6 0RF dextromethorphan-guaifenesin [Robitussin Cough-Chest Andrés DM] 5-100 mg/5 mL Liquid 10 ml PO Q6H PRN (Reason: cough) 5 Days Qty: 500 0RF Continued albuterol sulfate 90 mcg/actuation HFA aerosol inhaler 2 puff INHALATION Q4 PRN (Reason: Wheezing) levetiracetam 1,000 mg tablet 1,000 mg PO AMHS fluticasone propionate 50 mcg/actuation spray,suspension 2 spray INTRANASAL DAILY PRN (Reason: allergies or congestion) Discharge Orders: Discharge Order (Routine); Ordered 05/11/24 Ordered By: Skyler Ivan/Other Patient Handouts: The Flu (Influenza) Admission Data Admit Date/Time: 05/10/24 02:54 Attending Provider: Skyler Paulson Admit Provider: Micky Muir Primary Care Provider: Ramo Penaloza Other Providers: Micky Muir Other Interventions: Discharge Summary Assessment (RN) Last Done: 05/11/24 09:52
--- NOTE | 2024-05-11 13:35 | Communication Note ---
Date of Service: May 11, 2024 By CMS guidelines, a determination that the admission or continued stay is not medically necessary has been made by a member of the UR committee and a phys ician for this hospital stay, therefore a Code 44 will be completed and the Inpatient admission will be changed to outpatient.
--- NOTE | 2024-05-11 14:38 | Electrocardiogram Report ---
Test Reason : Blood Pressure : */* mmHG Vent. Rate : 124 BPM Atrial Rate : 124 BPM P-R Int : 148 ms QRS Dur : 86 ms QT Int : 312 ms P-R-T Axes : 65 59 21 degrees QTcB Int : 448 ms Sinus tachycardia Otherwise normal ECG When compared with ECG of 31-Oct-2021 20:24, T wave inversion no longer evident in Inferior leads Confirmed by Reggie Saavedra ([id number]) on 05/11/2024 2:37:55 PM Referred By: REFERRED SELF Confirmed By: Reggie Saavedra
== END 2024-05-11 10:37 | disposition home or self-care (01) | DRG 195 ==
LOC: ED 18:20 → INTOOBSV 05-10 02:54 → 2S 05-10 02:54